=== PATIENT | female | born 1975 | race Two or more races ===

== ENCOUNTER 2018-06-08 11:05 | Outpatient (CLI) | payer OTHER | END 2018-06-08 11:13 | disposition home or self-care (01) | LOC: SONOGRAMA 11:05 → MAMO-SONO 11:15 | DX: R10.2 Pelvic and perineal pain (principal); N84.0 Polyp of corpus uteri ==

== ENCOUNTER 2018-09-21 15:02 | Outpatient (CLI) | payer OTHER ==
[2018-09-27] MEDS ORDERED: INVOKANA300 MG (09:27)
[2018-09-27] MEDS ORDERED: JANUMET XR 50-1 EAC1 (09:27)
== END 2018-09-21 15:10 | disposition home or self-care (01) ==
LOC: EKG 15:02
DX: R07.89 Other chest pain (principal)

== ENCOUNTER 2018-09-30 07:54 | Day surgery (SDC) | payer OTHER ==
[~2018-09-30 07:54] MED LIST: INVOKANA300 MG; JANUMET XR 50-1 EAC1
[2018-09-30] MEDS ORDERED: DOXYCYCLINE HY100 MG PO (14:20)
[2018-09-30] MEDS ORDERED: CODE1TAB37 PO (14:20)
== END 2018-09-30 18:00 | disposition home or self-care (01) ==
LOC: CIR.AMB 07:54
DX: N84.0 Polyp of corpus uteri (principal); D25.0 Submucous leiomyoma of uterus